=== PATIENT | female | born 1960 | race Caucasian/White ===

== ENCOUNTER 2021-10-09 12:16 | Emergency (ER) | payer SELFPAY ==
--- NOTE | 2021-10-09 15:45 | ER ---
Nurse's Notes [facility] Name: Funmilayo Fry Age: 61 yrs Sex: Female : 1960 Arrival Date: 10/09/2021 Time: 12:22 Bed Waiting Private MD: Diagnosis: Influenza due to identified novel influenza A virus-B;Coronavirus infection, unspecified Presentation: 10/09 13:37 Chief complaint: Patient states: fever, body aches, tested positive for COVID iw yesterday. Coronavirus screen: Client presents with at least one sign or symptom that may indicate coronavirus-19. Ebola Screen: Patient negative for fever greater than or equal to 101.5 degrees Fahrenheit, and additional compatible Ebola Virus Disease symptoms Patient denies exposure to infectious person. Patient denies travel to an Ebola-affected area in the 21 days before illness onset. No symptoms or risks identified at this time. Initial Sepsis Screen: Does the patient meet any 2 criteria? No. Patient's initial sepsis screen is negative. Does the patient have a suspected source of infection? No. Patient's initial sepsis screen is negative. Risk Assessment: Do you want to hurt yourself or someone else? Patient reports no desire to harm self or others. Onset of symptoms was October 09, 2021. 13:37 Method Of Arrival: Ambulatory iw 13:37 Acuity: MIRIAM 4 iw Triage Assessment: 14:00 General: Appears in no apparent distress. Behavior is calm, cooperative. iw Screenin:58 Abuse screen: Denies threats or abuse. Denies injuries from another. Nutritional iw screening: No deficits noted. Tuberculosis screening: No symptoms or risk factors identified. Fall Risk None identified. Assessment: 13:48 General: Appears in no apparent distress. Behavior is calm, cooperative. General: iw Reports chills for fever for feeling ill for fatigue for. Pain: Complains of pain in body aches. Neuro: Level of Consciousness is awake, alert, obeys commands, Oriented to person, place, time, situation, Moves all extremities. Cardiovascular: Patient's skin is warm and dry. Respiratory: Respiratory effort is even, unlabored, Respiratory pattern is regular, symmetrical. Derm: Skin is intact, is healthy with good turgor. Musculoskeletal: Range of motion: intact in all extremities. Vital Signs: 13:03 BP 127 / 65; Pulse 76; Resp 16; Temp 98.1; Pulse Ox 99% ; Height 5 ft. 7 in. (170.18 zm cm); ED Course: 12:22 Patient arrived in ED. iw 13:00 Lupe Mock [facility]-C [facility]. kb 13:00 Dennis Charlton MD is Attending Physician. kb 13:38 Triage completed. iw 14:00 Arm band placed on. iw 15:58 No provider procedures requiring assistance completed. Patient did not have IV access iw during this emergency room visit. 15:59 Janeen Arvizu, RN is Primary Nurse. iw Administered Medications: No medications were administered Medication: 14:00 VIS not applicable for this client. iw Outcome: 15:45 Discharge ordered by . kb 15:58 Discharged to home ambulatory. iw 15:58 Condition: good 15:58 Discharge instructions given to patient, Instructed on discharge instructions, follow up and referral plans. Demonstrated understanding of instructions, follow-up care. 15:59 Patient left the ED. iw 19:15 Prescriptions given X called in prescription for Paxlovid 3 tabs Q 12 hours for five iw days # 30, called into [facility] , notified pt that prescription was called in Signatures: Lupe Mock FNP-C FNP-Janeen Ortiz, RN RN iw Simran Espinal
--- NOTE | 2021-10-09 15:45 | EDPHYS ---
Physician Documentation [facility] Name: Funmilayo Fry Age: 61 yrs Sex: Female : 1960 Arrival Date: 10/09/2021 Time: 12:22 Bed Waiting Private MD: ED Physician Dennis Charlton HPI: 10/09 14:23 This 61 yrs old Female presents to ER via Ambulatory with complaints of Cough, Fever. kb 14:23 The patient or guardian reports cough, flu symptoms, low-grade fever, myalgias. Onset: kb The symptoms/episode began/occurred last night. Severity of symptoms: At their worst the symptoms were mild, moderate, in the emergency department the symptoms are unchanged. Modifying factors: The symptoms are alleviated by nothing, the symptoms are aggravated by nothing. Associated signs and symptoms: Pertinent positives: fever, Pertinent negatives: chest pain, diarrhea, ear ache, nausea, rhinorrhea, sore throat, vomiting. The patient has not experienced similar symptoms in the past. The patient has not recently seen a physician. Pt reports bodyaches, fever and cough that started last night. States tested positive for covid yesterday. ROS: 14:22 Abdomen/GI: Negative for abdominal pain, nausea, vomiting, diarrhea, and constipation. kb 14:22 Constitutional: Positive for body aches, fever, malaise. 14:22 Respiratory: Positive for cough, Negative for dyspnea on exertion, hemoptysis, orthopnea, pleurisy, shortness of breath, sputum production, wheezing. 14:22 All other systems are negative. Exam: 14:22 Constitutional: This is a well developed, well nourished patient who is awake, alert, kb and in no acute distress. Head/Face: Normocephalic, atraumatic. ENT: Moist Mucous membranes Cardiovascular: Regular rate and rhythm with a normal S1 and S2. No gallops, murmurs, or rubs. No pulse deficits. Respiratory: Respirations even and unlabored. No increased work of breathing. Talking in full sentences Skin: Warm, dry with normal turgor. Normal color. MS/ Extremity: Pulses equal, no cyanosis. Neurovascular intact. Full, normal range of motion. Neuro: Awake and alert, GCS 15, oriented to person, place, time, and situation. Moves all extremities. Normal gait. Psych: Awake, alert, with orientation to person, place and time. Behavior, mood, and affect are within normal limits. Vital Signs: 13:03 BP 127 / 65; Pulse 76; Resp 16; Temp 98.1; Pulse Ox 99% ; Height 5 ft. 7 in. (170.18 zm cm); MDM: 13:00 Patient medically screened. kb 14:22 Data reviewed: vital signs, nurses notes. Data interpreted: Pulse oximetry: on room air kb is 99 %. Interpretation: normal. 14:24 Counseling: I had a detailed discussion with the patient and/or guardian regarding: the kb historical points, exam findings, and any diagnostic results supporting the discharge/admit diagnosis, lab results, the need for outpatient follow up, a family practitioner, to return to the emergency department if symptoms worsen or persist or if there are any questions or concerns that arise at home. 10/09 13:00 Order name: Flu; Complete Time: 13:37 kb 10/09 13:00 Order name: COVID-19 SARS RT PCR (Document "Date of Onset" if Symptomatic); Complete kb Time: 15:41 Administered Medications: No medications were administered Disposition Summary: 10/09/21 15:45 Discharge Ordered Location: Home kb Condition: Stable kb Diagnosis - Influenza due to identified novel influenza A virus - B kb - Coronavirus infection, unspecified kb Followup: kb - With: Emergency Department - When: As needed - Reason: Worsening of condition Followup: kb - With: Private Physician - When: 2 - 3 days - Reason: Recheck today's complaints, Continuance of care, Re-evaluation by your physician Discharge Instructions: - Discharge Summary Sheet kb - Influenza, Adult, [id number] kb - Viral Respiratory Infection, [id number] kb - COVID-19 kb Forms: - Medication Reconciliation Form kb - Thank You Letter kb - Antibiotic Education kb - Prescription Opioid Use kb Prescriptions: - PAXLOVID - take 3 tablet by ORAL route every 12 hours for 5 days; 30 tablet; Refills: 0, kb Product Selection Permitted Addendum: 10/11/2021 13:50 Co-signature as Attending Physician, Dennis Charlton MD I agree with the assessment and c lyons plan of care. Signatures: Dispatcher [employer] Lupe Sparks, TERRELL-C TERRELL-Ckb Zoltan, Dennis, MD MD chi
[2021-10-09 16:08] VITALS: BP 127/65; TEMP 98.1; O2SAT 99
== END 2021-10-09 15:59 | disposition home or self-care (01) ==
LOC: ER 12:16
DX: U07.1 COVID-19 (principal); J10.1 Influenza due to other identified influenza virus with other respiratory manifestations
CPT/HCPCS: 87804; 99282; U0003